=== PATIENT | female | born 1990 | race Caucasian/White ===

== ENCOUNTER 2017-09-19 20:05 | Outpatient (CLI) | payer MEDICAID ==
[2017-09-19 21:00] LABS: ADD MAN DIFF? NO
[2017-09-19 21:02] LABS: BASOPHILS % 0.2 % (0.0-2.0); EOSINOPHILS # 0.1 10^3/ul (0.0-0.5); EOSINOPHILS % 0.7 % (0.0-7.0); HEMATOCRIT 33.3 % (37.0-47.0); HEMOGLOBIN 11.2 g/dl (12.0-16.0); LYMPHOCYTES # 1.6 10^3/ul (0.8-2.9); LYMPHOCYTES % 15.2 % (15.0-51.0); MEAN CORPUSCULAR HEMOGLOBIN 28.6 pg (29.0-33.0); MEAN CORPUSCULAR HGB CONC 33.6 g/dl (32.0-37.0); MEAN CORPUSCULAR VOLUME 84.9 fl (82.0-101.0); MONOCYTE # 0.8 10^3/ul (0.3-0.9); MONOCYTES % 7.1 % (0.0-11.0); NEUTROPHIL # 8.2 10^3/ul (1.6-7.5); NEUTROPHILS % 76.2 % (39.0-77.0); PLATELET COUNT 282 10^3/UL (140-415); RED BLOOD COUNT 3.92 10^6/ul (4.20-5.40); RED CELL DISTRIBUTION WIDTH 12.4 % (11.5-14.5)
[2017-09-19 21:02] LABS: WHITE BLOOD COUNT 10.7 10^3/ul (4.8-10.8)
[2017-09-19 21:10] LABS: ADD UMIC NO; UR ASCORBIC ACID NEGATIVE (NEGATIVE); UR BILIRUBIN (Dip) NEGATIVE (NEGATIVE); UR BLOOD (Dip) NEGATIVE (NEGATIVE); UR CLARITY CLEAR (CLEAR); UR COLOR STRAW (YELLOW); UR GLUCOSE (Dip) NEGATIVE (NEGATIVE); UR KETONES (Dip) NEGATIVE (NEGATIVE); UR LEUKOCYTE ESTERASE (Dip) NEGATIVE Leu/ul (NEGATIVE); UR NITRITE (Dip) NEGATIVE (NEGATIVE); UR SPECIFIC GRAVITY (Dip) 1.009 (1.003-1.030); UR TOTAL PROTEIN (Dip) NEGATIVE (NEGATIVE); UR UROBILINOGEN (Dip) NEGATIVE (NEGATIVE)
[2017-09-19 21:22] LABS: ALANINE AMINOTRANSFERASE 23 IU/L (13-69); ALBUMIN 3.6 g/dl (3.3-4.9); ALBUMIN/GLOBULIN RATIO 1.02; ALKALINE PHOSPHATASE 96 IU/L (42-121); ANION GAP 15 (8-16); ASPARTATE AMINO TRANSFERASE 16 IU/L (15-46); BILIRUBIN,INDIRECT 0.1 mg/dl (0-1.1); BILIRUBIN,TOTAL 0.1 mg/dl (0.2-1.3); BLOOD UREA NITROGEN 6 mg/dl (7-20); CARBON DIOXIDE 25 mmol/L (21-31); CHLORIDE 103 mmol/L (97-110); CREATININE 0.46 mg/dl (0.44-1.00); GLUCOSE 82 mg/dl (70-220); POTASSIUM 3.9 mmol/L (3.5-5.1); SODIUM 139 mmol/L (135-144); TOTAL PROTEIN 7.1 g/dl (6.1-8.1); URIC ACID 2.8 mg/dl (3.1-7.9)
[2017-09-19] MEDS: ACETAMINOPHEN 500 MG TAB PO (21:27)
== END 2017-09-19 22:54 | disposition home or self-care (01) ==
LOC: OBT 20:05 → L-D 20:05 → OBT 22:54
DX: O21.8 Other vomiting complicating pregnancy (principal); O99.282 Endocrine, nutritional and metabolic diseases complicating pregnancy, second trimester; E03.9 Hypothyroidism, unspecified; O26.892 Other specified pregnancy related conditions, second trimester; R51 Headache; H53.149 Visual discomfort, unspecified; Z3A.27 27 weeks gestation of pregnancy
CPT/HCPCS: 36415; 76818; 80053; 81003; 84560; 85025

== ENCOUNTER 2017-11-22 09:04 | Outpatient (CLI) | payer MEDICAID | END 2017-11-22 11:41 | disposition home or self-care (01) | LOC: OBT 09:04 → L-D 09:05 → OBT 11:41 | DX: O36.8330 Maternal care for abnormalities of the fetal heart rate or rhythm, third trimester, not applicable or unspecified (principal); Z3A.36 36 weeks gestation of pregnancy | CPT/HCPCS: 76818 ==

== ENCOUNTER 2017-12-09 16:26 | Inpatient (IN) | payer MEDICAID ==
[~2017-12-09 16:26] MED LIST: OXYTOCIN 30 UNITS/LR 500 ML BAG IV
[2017-12-09] MEDS ORDERED: OXYTOCIN 30 UNITS/LR 500 ML IV (17:30)
[2017-12-09] MEDS ORDERED: METHYLERGONOVINE 0.2 MG INJ IM (17:30)
[2017-12-09] MEDS ORDERED: MISOPROSTOL 200 MCG TAB PR (17:30)
[2017-12-09] MEDS ORDERED: CARBOPROST 250 MCG INJ IM (17:30)
[2017-12-09 17:55] LABS: ADD MAN DIFF? NO
[2017-12-09 18:00] LABS: BASOPHILS % 0.4 % (0.0-2.0); EOSINOPHILS # 0.1 10^3/ul (0.0-0.5); EOSINOPHILS % 0.8 % (0.0-7.0); HEMATOCRIT 35.8 % (37.0-47.0); HEMOGLOBIN 11.5 g/dl (12.0-16.0); LYMPHOCYTES # 1.9 10^3/ul (0.8-2.9); LYMPHOCYTES % 17.5 % (15.0-51.0); MEAN CORPUSCULAR HEMOGLOBIN 26.7 pg (29.0-33.0); MEAN CORPUSCULAR HGB CONC 32.1 g/dl (32.0-37.0); MEAN CORPUSCULAR VOLUME 83.1 fl (82.0-101.0); MONOCYTE # 0.9 10^3/ul (0.3-0.9); MONOCYTES % 8.1 % (0.0-11.0); NEUTROPHIL # 7.7 10^3/ul (1.6-7.5); NEUTROPHILS % 72.7 % (39.0-77.0); PLATELET COUNT 296 10^3/UL (140-415); RED BLOOD COUNT 4.31 10^6/ul (4.20-5.40); RED CELL DISTRIBUTION WIDTH 13.2 % (11.5-14.5)
[2017-12-09 18:00] LABS: WHITE BLOOD COUNT 10.6 10^3/ul (4.8-10.8)
[2017-12-09 18:16] LABS: INR 0.97
[2017-12-09 18:17] LABS: PARTIAL THROMBOPLASTIN TIME 26.6 Sec (25.0-35.0)
[2017-12-09 18:50] LABS: HEPATITIS B SURFACE ANTIGEN NEGATIVE (NEGATIVE)
[2017-12-09] MEDS: LACTATED RINGER'S 1,000 ML IV ×2 (19:58→20:50)
[2017-12-09] MEDS: CITRIC ACID/SODIUM CITRATE 15 ML CUP PO (20:50)
[2017-12-09] MEDS: METOCLOPRAMIDE 10 MG INJ IV (20:50)
[2017-12-09] MEDS: ONDANSETRON 4 MG INJ IV ×2 (20:51→23:46)
[2017-12-09] MEDS ORDERED: morphine SULFATE/PF (10 MG/10 ML) INJ (21:10)
[2017-12-09] MEDS ORDERED: PHENYLephrine (100 MCG/ML) 5ML SYG (21:11)
[2017-12-09] MEDS ORDERED: BUPIVACAINE 0.75%/DEXT (SPINAL) 2 ML INJ (21:11)
[2017-12-09] MEDS ORDERED: OXYTOCIN 10 UNIT INJ (21:11)
[2017-12-09] MEDS ORDERED: ONDANSETRON 4 MG INJ (21:41)
[2017-12-09] MEDS ORDERED: DEXAMETHASONE 4 MG/ML 1 ML INJ (21:41)
[2017-12-09] MEDS ORDERED: METOCLOPRAMIDE 10 MG INJ (21:41)
[2017-12-09] MEDS ORDERED: KETOROLAC 30 MG INJ (21:41)
[2017-12-09] MEDS ORDERED: HYDROmorphONE 0.5 MG/0.5 ML SYG IV ×2 (22:30)
[2017-12-09] MEDS ORDERED: NALBUPHINE HCL (10 MG/1 ML) INJ IV (22:30)
[2017-12-09] MEDS ORDERED: HYDROCODONE/APAP (5/325) TAB PO (22:30)
[2017-12-09] MEDS ORDERED: NALOXONE (0.4 MG/ML) INJ IV (22:30)
[2017-12-09] MEDS ORDERED: ACETAMINOPHEN 500 MG TAB PO (22:30)
[2017-12-09] MEDS ORDERED: DIPHENHYDRAMINE 50 MG INJ IV (22:30)
[2017-12-09] MEDS ORDERED: morphine 2 MG INJ IV ×2 (22:30)
[2017-12-09 23:17] LABS: RAPID PLASMA REAGIN NONREACTIVE (NR)
[2017-12-09] MEDS: OXYTOCIN 30 UNITS/LR 500 ML IV (23:39)
[2017-12-09] MEDS: CEFAZOLIN 2 GM/50 ML (PMX) 50 ML IV (23:39)
[2017-12-10] MEDS: OXYTOCIN 30 UNITS/LR 500 ML IV ×2 (00:50→04:27)
[2017-12-10] MEDS ORDERED: MISOPROSTOL 200 MCG TAB PR (01:30)
[2017-12-10] MEDS ORDERED: METHYLERGONOVINE 0.2 MG INJ IM (01:30)
[2017-12-10] MEDS ORDERED: OXYTOCIN 30 UNITS/LR 500 ML IV (01:30)
[2017-12-10] MEDS ORDERED: CARBOPROST 250 MCG INJ IM (01:30)
[2017-12-10] MEDS ORDERED: HYDROCODONE/APAP (5/325) TAB PO ×2 (01:30)
[2017-12-10] MEDS: CEFAZOLIN 1 GM/50 ML (PMX) 50 ML IVPB (05:40)
[2017-12-10] MEDS: KETOROLAC 30 MG INJ IV ×3 (05:40→21:19)
[2017-12-10] MEDS: LANOLIN 7 GM TUBE TOP (05:40)
[2017-12-10 08:52] LABS: ADD MAN DIFF? NO
[2017-12-10 08:56] LABS: WHITE BLOOD COUNT 14.7 10^3/ul (4.8-10.8)
[2017-12-10 08:56] LABS: BASOPHILS % 0.2 % (0.0-2.0); HEMATOCRIT 32.9 % (37.0-47.0); HEMOGLOBIN 10.4 g/dl (12.0-16.0); LYMPHOCYTES # 1.3 10^3/ul (0.8-2.9); LYMPHOCYTES % 8.6 % (15.0-51.0); MEAN CORPUSCULAR HEMOGLOBIN 26.3 pg (29.0-33.0); MEAN CORPUSCULAR HGB CONC 31.6 g/dl (32.0-37.0); MEAN CORPUSCULAR VOLUME 83.1 fl (82.0-101.0); MEAN PLATELET VOLUME 9.9 fl (7.4-10.4); MONOCYTE # 0.7 10^3/ul (0.3-0.9); MONOCYTES % 4.8 % (0.0-11.0); NEUTROPHIL # 12.6 10^3/ul (1.6-7.5); NEUTROPHILS % 85.8 % (39.0-77.0); PLATELET COUNT 256 10^3/UL (140-415); RED BLOOD COUNT 3.96 10^6/ul (4.20-5.40); RED CELL DISTRIBUTION WIDTH 12.9 % (11.5-14.5)
[2017-12-10] MEDS ORDERED: NON-FORMULARY/PATIENT OWN MED (Ferrous Sulfate (Iron) 134 MG) PO (09:00)
[2017-12-10] MEDS ORDERED: IRON CARB PO (09:00)
[2017-12-10] MEDS ORDERED: [UNRECOGNIZED DRUG - OTHER] PO (09:00)
[2017-12-10] MEDS ORDERED: PRENATAL VIT PO (09:00)
[2017-12-10] MEDS: SENNA/DOCUSATE NA (8.6MG/50MG) TAB PO ×2 (09:00→21:19)
[2017-12-10] MEDS: LACTATED RINGER'S 1,000 ML IV ×2 (09:01→17:01)
[2017-12-10] MEDS: METHIMAZOLE 5 MG TAB PO (09:59)
[2017-12-10] MEDS: PRENATAL VITAMIN PO (09:59)
[2017-12-10] MEDS: FERROUS SULFATE (SR) 142 MG TAB PO (09:59)
[2017-12-10 11:09] LABS: THYROID STIMULATING HORMONE < 0.015 MIU/L (0.465-4.680)
[2017-12-11] MEDS: LACTATED RINGER'S 1,000 ML IV ×3 (01:17→17:17)
[2017-12-11] MEDS: PRENATAL VITAMIN PO (08:54)
[2017-12-11] MEDS: SENNA/DOCUSATE NA (8.6MG/50MG) TAB PO ×2 (08:54→20:49)
[2017-12-11] MEDS: METHIMAZOLE 5 MG TAB PO (08:55)
[2017-12-11] MEDS: FERROUS SULFATE (SR) 142 MG TAB PO (08:55)
[2017-12-11] MEDS: OXYCODONE/ACETAMINOPHEN (5/325) TAB PO ×2 (16:40→23:40)
[2017-12-12] MEDS: IBUPROFEN 600 MG TAB PO ×4 (00:45→18:00)
[2017-12-12] MEDS: SENNA/DOCUSATE NA (8.6MG/50MG) TAB PO (09:00)
[2017-12-12] MEDS: PRENATAL VITAMIN PO (09:09)
[2017-12-12] MEDS: FERROUS SULFATE (SR) 142 MG TAB PO (09:09)
[2017-12-12 09:13] LABS: ADD MAN DIFF? NO
[2017-12-12] MEDS: METHIMAZOLE 5 MG TAB PO (09:15)
[2017-12-12 09:18] LABS: WHITE BLOOD COUNT 8.2 10^3/ul (4.8-10.8)
[2017-12-12 09:18] LABS: BASOPHIL # 0.1 10^3/ul (0.0-0.1); BASOPHILS % 0.6 % (0.0-2.0); EOSINOPHILS # 0.4 10^3/ul (0.0-0.5); EOSINOPHILS % 4.2 % (0.0-7.0); HEMATOCRIT 32.1 % (37.0-47.0); LYMPHOCYTES # 1.9 10^3/ul (0.8-2.9); LYMPHOCYTES % 23.5 % (15.0-51.0); MEAN CORPUSCULAR HEMOGLOBIN 26.3 pg (29.0-33.0); MEAN CORPUSCULAR HGB CONC 31.2 g/dl (32.0-37.0); MEAN CORPUSCULAR VOLUME 84.5 fl (82.0-101.0); MEAN PLATELET VOLUME 9.8 fl (7.4-10.4); MONOCYTE # 0.7 10^3/ul (0.3-0.9); MONOCYTES % 8.1 % (0.0-11.0); NEUTROPHIL # 5.2 10^3/ul (1.6-7.5); PLATELET COUNT 274 10^3/UL (140-415); RED CELL DISTRIBUTION WIDTH 13.4 % (11.5-14.5)
[2017-12-12 10:15] LABS: THYROID STIMULATING HORMONE < 0.015 MIU/L (0.465-4.680)
[2017-12-12] MEDS: DIPHTH/TET/ACEL PERTUSS (ADULT) 0.5 ML VIAL IM* (14:02)
[2017-12-12] MEDS ORDERED: IBUPROFEN 600 MG TAB PO (22:00)
[2017-12-15 20:56] LABS: TSH RECEPTOR ANTIBODY 18 (< OR = 16)
== END 2017-12-12 18:56 | disposition home or self-care (01) | DRG 766 ==
LOC: OBT 16:26 → PP1 12-10 02:07 → L-D 16:27 → OBT 17:22 → L-D 17:10
PROVIDERS: Obstetrics & Gynecology
PROC: 10D00Z1 Extraction of Products of Conception, Low, Open Approach (ICD-10-PCS; principal; 2017-12-09)
PROC: 4A1HXCZ Monitoring of Products of Conception, Cardiac Rate, External Approach (ICD-10-PCS; 2017-12-09)
PROC: 3E0234Z Introduction of Serum, Toxoid and Vaccine into Muscle, Percutaneous Approach (ICD-10-PCS; 2017-12-12)
DX: O34.219 Maternal care for unspecified type scar from previous cesarean delivery (principal); O99.284 Endocrine, nutritional and metabolic diseases complicating childbirth; E05.00 Thyrotoxicosis with diffuse goiter without thyrotoxic crisis or storm; Z37.0 Single live birth; Z3A.38 38 weeks gestation of pregnancy; Z23 Encounter for immunization
CPT/HCPCS: 84235; 84443; 85025; 85610; 85730; 86592; 86850; 86900; 86901; 87340; 90715; 99464